=== PATIENT | female | born 1950 | race Caucasian/White ===

== ENCOUNTER 2017-12-01 21:44 | Emergency (ER) | payer MEDICARE ==
[~2017-12-01] VITALS: Ht 162.6 cm; Wt 85.7 kg
--- OUTSIDE RECORDS SUMMARY | 2017-12-01 21:48 | XMS REPORT | Clinical Summary ---
Author Author [facility] Organization [facility] Address Unknown Phone Unavailable Care Team Providers Care Fire Management Specialist Name Role Phone Provider, Unknown PCP Unavailable Allergies Active Allergy Reactions Severity Noted Date Comments Sulfa (Sulfonamide Swelling High 01/28/2016 Antibiotics) Current Medications No known medications Active Problems Not on file Social History Tobacco Use Types Packs/Day Years Used Date Never Smoker Alcohol Use Drinks/Week oz/Week Comments Yes Quit 1 1/2 week ago Sex Assigned at Date Recorded Not on file Last Filed Vital Signs Not on file Plan of Treatment Health Maintenance Due Date Last Done Comments COLONOSCOPY 2001 MAMMOGRAM 2001 ZOSTER VACCINE 2011 PNEUMOCOCCAL 01/23/2016 POLYSACCHARIDE VACCINE AGE 65 AND OVER PNEUMOCOCCAL-13 01/23/2016 INFLUENZA VACCINE 04/01/2017 Results Not on fileafter 11/30/2016 Insurance Payer Benefit Subscriber ID Type Phone Address Plan / Group MEDICARE MEDICARE xxxxxxxxxx Medicare [place] [address]
[2017-12-01] MEDS ORDERED: FLUORESCEIN SOD(OPTH) 1 MG STRP OP ONE (22:15)
[2017-12-01] MEDS ORDERED: TETRACAINE HCL 0.5% OPTH SOLN 4 ML BTL OP ONE (22:15)
== END 2017-12-01 22:38 | disposition home or self-care (01) ==
LOC: FSED 21:44
DX: H57.11 Ocular pain, right eye (principal); H16.8 Other keratitis